=== PATIENT | female | born 1945 | race Caucasian/White ===

== ENCOUNTER 2017-02-27 07:41 | Day surgery (SDC) | payer MEDICARE, BC ==
[2017-02-27] MEDS ORDERED: Sodium Chloride 0.9% 1,000 ML IV SCH (08:00)
[2017-02-27] MEDS ORDERED: fentaNYL 100 MCG/2 ML SDV ONE (08:31)
[2017-02-27] MEDS ORDERED: Midazolam 1 MG/ML 2 ML SDV ONE (08:31)
[2017-02-27] MEDS ORDERED: Propofol 200 MG/20 ML SDV ONE (08:31)
[2017-02-27 11:18] VITALS: BP 113/75
--- NOTE | 2017-02-28 09:31 | PROC ---
DATE OF PROCEDURE: 02/27/2017 INDICATION: This is a 71-year-old female, who comes in for a screening colonoscopy. The risks and benefits were explained to the patient and was taken to the OR. PROCEDURE IN DETAIL: Anesthesia was given by nurse ip architect. During the procedure, we used 100 mcg of fentanyl, 2 mg of Versed, and 200 mg of propofol. With a gloved finger, the rectum was examined and there was no abnormality. The Olympus 180AL scope was used. The tube was placed into the rectum and advanced under direct vision. We started out with the patient lying on her left side, and we got to the end of the sigmoid colon and unable to advance further. We then put her on her back and finally did get to the cecum. Upon retraction of the tube, noted no lesions, ulceration, or new abnormality. The tube was removed. The patient tolerated the procedure well. This is a very difficult colon and very flaccid colon, difficult to get through. PREOPERATIVE DIAGNOSIS: Screening colonoscopy. POSTOPERATIVE DIAGNOSIS: Normal colon from cecum to rectum. Omar Angelo MD /[id number]
== END 2017-02-27 11:15 | disposition home or self-care (01) ==
LOC: JP.SDS 07:41
PROVIDERS: ATTEND Internal Medicine
DX: Z12.11 Encounter for screening for malignant neoplasm of colon (principal)
CPT/HCPCS: G0121; J2250; J2704; J3010; J7040